=== PATIENT | male | born 1980 | race Caucasian/White ===

== ENCOUNTER 2025-01-13 12:16 | Inpatient (IN) | payer OTHER ==
[~2025-01-13] VITALS: Ht 175.3 cm; Wt 111.2 kg
[2025-01-13] MEDS ORDERED: LOSA-382 PO (12:41)
[2025-01-13] MEDS ORDERED: OMEP-148 PO (12:41)
[2025-01-13] MEDS ORDERED: ALBU18HF12 IH (12:41)
[2025-01-13 13:41] LABS: PLATELET COUNT (AUTO) 345 K/uL (150-450); RED BLOOD CELL COUNT(AUTO) 5.23 MIL/uL (4.50-5.90); RED CELL DISTRIBUTION WIDTH 14.5 % (11.5-14.5); WHITE BLOOD COUNT (AUTO) 17.7 K/uL (4.5-11.0)
[2025-01-13] MEDS ORDERED: ZOLPIDEM TARTRATE 5 MG TABLET PO PRN (13:45)
[2025-01-13 13:52] LABS: CALCIUM, TOTAL 8.7 mg/dL (8.8-10.5); CREATININE 2.24 mg/dL (0.60-1.30); GLOMERULAR FILTR. RATE CALC 32 mL/min (>60); GLUCOSE,RANDOM 100 mg/dL (70-110); SODIUM SERUM 139 mmol/L (136-145); UREA NITROGEN, BLOOD 30 mg/dL (7-18)
[2025-01-13 14:03] LABS: TROPONIN I-HIGH SENSITIVITY 92 ng/L (<76)
[2025-01-13 14:08] LABS: ASPARTATE AMINOTRANSFERASE 84.0 U/L (15-37); CREATINE KINASE, TOTAL ONLY 3947.0 U/L (39-308); TOTAL PROTEIN, SERUM 7.9 g/dL (6.4-8.2)
[2025-01-13] MEDS: POTASSIUM CHLORIDE 10 MEQ ER TABLET PO ONE (14:42)
[2025-01-13] MEDS: SODIUM CHLORIDE 0.9% 1,000 ML IV SCH (14:42)
[2025-01-13] MEDS: ASPIRIN 81 MG CHEWABLE TABLET PO ONE (14:43)
[2025-01-13 20:22] VITALS: BP 133/92; PULSE 82; RESP 18; TEMP 98.4; O2SAT 98
[2025-01-13] MEDS: DOCUSATE SODIUM 100 MG CAPSULE PO SCH (20:25)
[2025-01-13] MEDS: ACETAMINOPHEN 325 MG TABLET PO PRN (20:25)
[2025-01-13 23:51] VITALS: BP 151/83; PULSE 76; RESP 18; TEMP 98.6; O2SAT 95
[2025-01-14] MEDS ORDERED: POTASSIUM CHL 10 MEQ/WATER 50 ML IV PRN
[2025-01-14] MEDS: POTASSIUM CHLORIDE 20 MEQ ER TABLET PO PRN (00:25)
[2025-01-14 02:57] LABS: APPEARANCE,URINE HAZY (CLEAR); GLUCOSE, URINE (UA) NEGATIVE (NEGATIVE); LEUKOCYTE ESTERASE ,URINE NEGATIVE (NEGATIVE); NITRATE,URINE NEGATIVE (NEGATIVE); OCCULT BLOOD,URINE NEGATIVE (NEGATIVE); PH,URINE DRUG SCREEN 5.5 (5.0-8.0); SPECIFIC GRAVITIY, URINE 1.023 (1.003-1.030)
[2025-01-14 03:03] LABS: ALCOHOL, URINE DRUG SCREEN NEGATIVE (NEGATIVE); AMPHET/METH SCREEN,URINE NEGATIVE (NEGATIVE); BARBITURATE SCREEN, URINE NEGATIVE (NEGATIVE); CANNABINOID SCREEN,URINE NEGATIVE (NEGATIVE); COCAINE SCREEN,URINE NEGATIVE (NEGATIVE); METHADONE SCREEN, URINE NEGATIVE (NEGATIVE)
[2025-01-14 04:21] VITALS: BP 139/97; PULSE 82; RESP 17; TEMP 99.1; O2SAT 97
[2025-01-14 06:52] LABS: PLATELET COUNT (AUTO) 299 K/uL (150-450); RED BLOOD CELL COUNT(AUTO) 4.97 MIL/uL (4.50-5.90); RED CELL DISTRIBUTION WIDTH 14.7 % (11.5-14.5); WHITE BLOOD COUNT (AUTO) 14.3 K/uL (4.5-11.0)
[2025-01-14 07:01] LABS: CALCIUM, TOTAL 8.0 mg/dL (8.8-10.5); CREATININE 1.45 mg/dL (0.60-1.30); GLOMERULAR FILTR. RATE CALC 53.0 mL/min (>60); GLUCOSE,RANDOM 100.0 mg/dL (70-110); SODIUM SERUM 143.0 mmol/L (136-145); UREA NITROGEN, BLOOD 18.0 mg/dL (7-18)
[2025-01-14 08:01] VITALS: BP 153/100; PULSE 100; RESP 20; TEMP 99; O2SAT 95
[2025-01-14] MEDS: FAMOTIDINE 20 MG TABLET PO SCH (08:07)
[2025-01-14 12:21] VITALS: BP 141/92; PULSE 89; RESP 20; TEMP 98.6; O2SAT 98
[2025-01-14 15:26] VITALS: BP 145/99; PULSE 77; RESP 18; TEMP 99; O2SAT 98
[2025-01-14 20:20] VITALS: BP 154/91; PULSE 96; RESP 19; TEMP 99; O2SAT 94
[2025-01-15 00:15] VITALS: BP 144/100; PULSE 81; RESP 17; TEMP 98.2; O2SAT 94
[2025-01-15 04:40] VITALS: BP 136/50; PULSE 70; RESP 17; TEMP 98.6; O2SAT 97
[2025-01-15 06:25] LABS: CALCIUM, TOTAL 8.2 mg/dL (8.8-10.5); CREATININE 1.04 mg/dL (0.60-1.30); GLOMERULAR FILTR. RATE CALC > 60 mL/min (>60); GLUCOSE,RANDOM 93 mg/dL (70-110); SODIUM SERUM 144 mmol/L (136-145); UREA NITROGEN, BLOOD 14 mg/dL (7-18)
[2025-01-15 07:06] LABS: PLATELET COUNT (AUTO) 289 K/uL (150-450); RED BLOOD CELL COUNT(AUTO) 4.82 MIL/uL (4.50-5.90); RED CELL DISTRIBUTION WIDTH 14.7 % (11.5-14.5); WHITE BLOOD COUNT (AUTO) 11.9 K/uL (4.5-11.0)
[2025-01-15 13:25] VITALS: BP 148/92; PULSE 90; RESP 20; TEMP 98.4; O2SAT 94
[2025-01-15] MEDS ORDERED: MEBROFENIN TC99M/MCL ISOTOPE 1 EA INJ INJ ONE (15:35)
[2025-01-15 16:54] VITALS: BP 149/104; PULSE 70; RESP 18; TEMP 99; O2SAT 95
[2025-01-15 20:00] VITALS: BP 156/103; PULSE 85; RESP 19; TEMP 98.8; O2SAT 94
[2025-01-15] MEDS ORDERED: ZOLPIDEM TARTRATE 5 MG TABLET PO PRN (21:45)
[2025-01-15] MEDS ORDERED: IPRATROPIUM BROMIDE 0.5 MG/2.5 ML NEB SOLUTION NEB PRN (21:45)
[2025-01-15] MEDS ORDERED: BISACODYL 10 MG RECTAL RECTAL SUPPOSITORY PR PRN (21:45)
[2025-01-15] MEDS ORDERED: OxyCODONE HCL/ACETAMINOPHEN 5-325 MG TABLET PO PRN (21:45)
[2025-01-15] MEDS ORDERED: ACETAMINOPHEN 325 MG TABLET PO PRN (21:45)
[2025-01-15] MEDS ORDERED: ONDANSETRON HCL 4 MG/2 ML VIAL IVP PRN (21:45)
[2025-01-15] MEDS ORDERED: MAGNESIUM HYDROXIDE SUSPENSION 30 ML UDCUP PO PRN (21:45)
[2025-01-15] MEDS ORDERED: MORPHINE SULFATE 4 MG/ML SYRINGE IVP PRN (21:45)
[2025-01-15] MEDS ORDERED: ALBUTEROL SULFATE 2.5 MG/0.5 ML NEB SOLUTION NEB PRN (21:45)
[2025-01-15] MEDS: LOSARTAN POTASSIUM 50 MG TABLET PO ONE (21:49)
[2025-01-15] MEDS: HEPARIN SODIUM,PORCINE 5,000 UNITS/ML VIAL SQ SCH (23:15)
[2025-01-16] VITALS (8 sets, daily range): BP systolic 141–160; BP diastolic 72–98; PULSE 61–82; RESP 16–20; TEMP 97.7–98.6; O2SAT 92–99
[2025-01-16 06:31] LABS: PLATELET COUNT (AUTO) 310 K/uL (150-450); RED BLOOD CELL COUNT(AUTO) 4.91 MIL/uL (4.50-5.90); RED CELL DISTRIBUTION WIDTH 14.3 % (11.5-14.5); WHITE BLOOD COUNT (AUTO) 9.9 K/uL (4.5-11.0)
[2025-01-16 06:44] LABS: CALCIUM, TOTAL 8.3 mg/dL (8.8-10.5); CREATININE 0.89 mg/dL (0.60-1.30); GLOMERULAR FILTR. RATE CALC > 60 mL/min (>60); GLUCOSE,RANDOM 93 mg/dL (70-110); SODIUM SERUM 140 mmol/L (136-145); UREA NITROGEN, BLOOD 10 mg/dL (7-18)
[2025-01-16] MEDS: LOSARTAN POTASSIUM 50 MG TABLET PO SCH (09:19)
[2025-01-16] MEDS: PANTOPRAZOLE SODIUM 40 MG/VIAL IVP SCH (09:19)
[2025-01-16] MEDS: PIPERACILLIN/TAZO 3.375 GM/D5W 50 ML IV SCH (15:32)
[2025-01-16] MEDS: FAMOTIDINE 20 MG TABLET PO SCH (22:00)
[2025-01-17 04:05] VITALS: BP 127/85; PULSE 59; RESP 18; TEMP 98.2; O2SAT 97
[2025-01-17 07:28] VITALS: BP 155/94; PULSE 65; RESP 18; TEMP 97.9; O2SAT 96
[2025-01-17 13:05] VITALS: BP 146/108; PULSE 70; RESP 17; TEMP 98.6; O2SAT 95
[2025-01-17 16:03] VITALS: BP 148/91; PULSE 64; RESP 18; TEMP 99; O2SAT 96
[2025-01-17] MEDS ORDERED: DOCU-385 PO (17:46)
[2025-01-17] MEDS ORDERED: AMOX-457 PO (17:50)
== END 2025-01-17 18:15 | DRG 683 ==
LOC: EMS 12:20 → EDH 13:36 → 5S 18:35
PROVIDERS: ADMIT Internal Medicine; ATTEND Internal Medicine
DX: N17.9 Acute kidney failure, unspecified (principal); K81.0 Acute cholecystitis; R65.10 Systemic inflammatory response syndrome (SIRS) of non-infectious origin without acute organ dysfunction; G90.89 Other disorders of autonomic nervous system; E66.9 Obesity, unspecified; Z68.36 Body mass index [BMI] 36.0-36.9, adult; I10 Essential (primary) hypertension; E86.0 Dehydration; E87.6 Hypokalemia; S09.90XA Unspecified injury of head, initial encounter; K21.9 Gastro-esophageal reflux disease without esophagitis; R55 Syncope and collapse
CPT/HCPCS: 70450; 71045; 72125; 78226; 80048; 80076; 80307; 81003; 82550; 84132; 84484; 85025; 85610; 93005; 93306; 93880; 99285; A9537; J0360; J1644; J2470; J2543; J7030; 36415-L1; 36415-TC